=== PATIENT | male | born 1975 | race African-American/Black ===

== ENCOUNTER 2016-10-05 22:54 | Emergency (ER) | payer SELFPAY ==
[2016-10-05 23:00] VITALS: BMI 27.1
[2016-10-05] MEDS ORDERED: morphine CARPU-JECT 4 MG/1 ML DISP.SYRIN IVPUSH ONE (23:15)
[2016-10-05] MEDS ORDERED: SODIUM CHLORIDE 1,000 ML IV STA (23:15)
[2016-10-05] MEDS ORDERED: FAMOTIDINE 20 MG/50 ML IVPB 50 ML IVPB ONE ×2 (23:15→23:22)
[2016-10-05] MEDS ORDERED: PANTOPRAZOLE SODIUM 40 MG in SODIUM CHLORIDE 100 ML IVPB ONE (23:15)
[2016-10-05] MEDS ORDERED: ONDANSETRON 4 MG/2 ML VIAL IVPB ONE (23:16)
[2016-10-05] MEDS ORDERED: ONDANSETRON 4 MG/2 ML VIAL ONE (23:22)
[2016-10-05] MEDS ORDERED: morphine CARPU-JECT 4 MG/1 ML DISP.SYRIN ONE (23:22)
[2016-10-06 00:14] LABS: MCH 32.2 pg (25.7-33.7); MCHC 34.2 g/dl (32.0-35.9); MEAN CELL VOLUME 94.2 fl (80-96); WHITE BLOOD COUNT 5.8 K/mm3 (4.0-10.0)
[2016-10-06 00:15] LABS: BASOPHIL 0.1 % (0-2.0); EOSINOPHIL 0.3 % (0-4.5); MEAN PLT VOLUME 8.9 fl (7.5-11.1); NEUTROPHILS 73.7 % (42.8-82.8); PLATELET COUNT 138 K/MM3 (134-434); RDW 11.9 % (11.9-15.9)
[2016-10-06] MEDS ORDERED: PANTOPRAZOLE SODIUM 40 MG VIAL ONE (00:28)
[2016-10-06 00:57] LABS: ALBUMIN 3.5 g/dl (3.4-5.0); CALCIUM 8.5 mg/dL (8.5-10.1); COCKROFT - GAULT 90.89; CREATININE 1.4 mg/dL (0.7-1.3)
[2016-10-06 00:59] LABS: BILIRUBIN,TOTAL 0.7 mg/dL (0.2-1.0)
[2016-10-06] MEDS ORDERED: ACETAMINOPHEN 325 MG TABLET (FP) PO ONE (01:12)
[2016-10-06] MEDS ORDERED: ACETAMINOPHEN 325 MG TABLET (FP) ONE (01:14)
--- NOTE | 2016-10-06 01:29 | PDOC ---
History of Present Illness - General Chief Complaint: Pain, Acute Stated Complaint: STOMACH PAIN Time Seen by Provider: 10/05/16 23:09 History Source: Patient Exam Limitations: No Limitations - History of Present Illness Travel History: No Initial Comments: 10/06/16 01:30 41yo Male patient presents to ED c/o abd pain, nausea and diarrhea, low grade fever beginning tonight at 9pm. Patient states he ate some food yesterday which he feels may have caused his symptoms. Denies vomiting, back pain, diff breathing, CP, or any other complaints at this time. Timing/Duration: reports: getting worse Quality: reports: moderate, cramping Abdominal Pain Onset Location: reports: RLQ, generalized abdomen Pain Radiation: reports: no radiation Activities at Onset: reports: no specific activity Treatment Prior to Arrive: worse with: analgesics, antacids, cold pack, heat, laxative, enema, other Aggravating Factors: worse with: None, Defecation, Eating, Emotional upset, Exertion, Casar, Movement, Voiding, Change in position Alleviating Factors: improves with: Belching, Passing Gas. worse with: None, Shallow Breathing, Defecation, Eating, Holding Breath, Change in Position, Rest , Voiding, Vomiting Past History - Travel Traveled outside of the country in the last 30 days: No Close contact w/someone who was outside of country & ill: No - Past Medical History Allergies/Adverse Reactions: Allergies Allergy/AdvReac Type Severity Reaction Status Date / Time No Known Allergies Allergy Verified 10/05/16 22:57 Home Medications: Ambulatory Orders NK [No Known Home Medication] 10/06/16 Other medical history: denies - Immunization History Immunization Up to Date: Yes - Psycho/Social/Smoking Cessation Hx Suicidal Ideation: No Smoking History: Never smoked Information on smoking cessation initiated: No Hx Alcohol Use: No Drug/Substance Use Hx: No Substance Use Type: None Abd/GI Specific PMHX - Complaint Specific PMHX Colitis: No Diverticulitis: No Gall Bladder Disease: No GERD: No Hepatitis: No Irritable Bowel Synd (IBS): No Pancreatitis: No GI Ulcer Disease: No Review of Systems - Review of Systems Able to Perform ROS?: Yes Is the patient limited Swedish proficient: No Constitutional: No: Chills, Fever Respiratory: No: Cough, Orthopnea, Shortness of Breath, Stridor, Wheezing, Productive cough, Hemoptysis Cardiac (ROS): No: Chest Pain, Edema, Lightheadedness, Palpitations, Syncope, Chest Tightness ABD/GI: Yes: Diarrhea, Nausea, Indigestion, Abdominal cramping. No: Difficulty Swallowing, Poor Appetite, Poor Fluid Intake, Rectal Bleeding : No: Burning, Dysuria, Discharge, Flank Pain, Hematuria Musculoskeletal: No: Back Pain, Muscle Weakness, Neck Pain Integumentary: No: Bruising, Erythema, Sweating Neurological: No: Headache, Numbness, Paresthesia, Seizure, Tingling, Tremors, Weakness, Ataxia, Dizziness All Other Systems: Reviewed and Negative *Physical Exam - Vital Signs Last Vital Signs Temp Pulse Resp BP Pulse Ox 99.2 F 95 H 20 119/74 96 10/05/16 22:57 10/05/16 22:57 10/05/16 22:57 10/05/16 22:57 10/05/16 22:57 - Physical Exam General Appearance: Yes: Nourished, Appropriately Dressed, Apparent Distress, Moderate Distress. No: Mild Distress, Severe Distress Respiratory/Chest: positive: Lungs Clear, Normal Breath Sounds. negative: Respiratory Distress, Accessory Muscle Use, Labored Respiration, Rapid RR, Stridor, Wheezing Cardiovascular: positive: Regular Rhythm, Regular Rate. negative: Edema, JVD Gastrointestinal/Abdominal: positive: Tender (Generalized), Soft, Increased Bowel Sounds, Tenderness (RLQ). negative: Distended, Guarding, Rebound Musculoskeletal: positive: Normal Inspection. negative: CVA Tenderness, CVA Tenderness (R), CVA Tenderness (L) Extremity: positive: Normal Capillary Refill, Normal Inspection, Normal Range of Motion. negative: Pedal Edema, Swelling, Calf Tenderness, Erythema, Inflammation Integumentary: positive: Normal Color, Dry, Warm Neurologic: positive: consulting analyst II-XII NML intact, Fully Oriented, Alert, Normal Mood/ Affect, Normal Response, Motor Strength /5 ED Treatment Course - LABORATORY CBC & Chemistry Diagram: 10/05/16 23:20 10/05/16 23:20 - ADDITIONAL ORDERS Additional order review: Laboratory Results 10/05/16 23:20 Sodium 139 Potassium 3.8 Chloride 100 Carbon Dioxide 31 Anion Gap 8 BUN 13 Creatinine 1.4 H Creat Clearance w eGFR 56.42 Random Glucose 114 H Calcium 8.5 Total Bilirubin 0.7 AST 18 ALT 40 Alkaline Phosphatase 71 Total Protein 7.0 Albumin 3.5 Total Amylase 98 Lipase 157 10/05/16 23:20 RBC 4.24 MCV 94.2 MCHC 34.2 RDW 11.9 MPV 8.9 Neutrophils % 73.7 Lymphocytes % 16.1 Monocytes % 9.8 Eosinophils % 0.3 Basophils % 0.1 - RADIOLOGY Radiology Studies Ordered: Category Date Time Status PELVIS(OTHER) US [US] Stat Ultrasound 10/06/16 Taken - Medications Given in the ED: ED Medications Discontinued Medications Generic Name Dose Route Start Last Admin Trade Name Freq PRN Reason Stop Dose Admin Pantoprazole Sodium 40 mg/ 100 mls @ 200 mls/hr 10/05/16 23:15 10/05/16 23:55 Sodium Chloride IVPB 10/05/16 23:44 200 mls/hr ONCE ONE Administration Famotidine/Sodium Chloride 50 mls @ 100 mls/hr 10/05/16 23:15 10/05/16 23:25 Pepcid 20 Mg Premixed Ivpb - IVPB 10/05/16 23:44 100 mls/hr ONCE ONE Administration Sodium Chloride 1,000 mls @ 1,000 mls/hr 10/05/16 23:15 10/06/16 00:23 Normal Saline - IV 10/06/16 00:14 1,000 mls/hr ASDIR STA Administration Morphine Sulfate 4 mg 10/05/16 23:15 10/05/16 23:25 Morphine Injection - IVPUSH 10/05/16 23:16 4 mg ONCE ONE Administration Ondansetron HCl 4 mg 10/05/16 23:16 10/05/16 23:55 Zofran Injection IVPB 10/05/16 23:17 4 mg ONCE ONE Administration *DC/Admit/Observation/Transfer Diagnosis at time of Disposition: Gastroenteritis - Discharge Dispostion Disposition: HOME Condition at time of disposition: Improved Admit: No - Patient Instructions Printed Discharge Instructions: DI for Viral Gastroenteritis -- Adult Additional Instructions: FOLLOW UP WITH YOUR PRIMARY CARE PROVIDER NEEDED. RETURN IF SYMPTOMS WORSEN OR ANY CONCERNS FOR FURTHER EVALUATION. Print Language: IRANIAN
[2016-10-06 01:51] VITALS: BP 112/78; PULSE 88; TEMP 98.9
[2016-10-06 02:05] LABS: URINE APPEARANCE CLEAR; URINE BILIRUBIN NEGATIVE (NEGATIVE); URINE BLOOD NEGATIVE (NEGATIVE); URINE COLOR BROWN; URINE GLUCOSE (UA) NEGATIVE (NEGATIVE); URINE KETONE 1+ (NEGATIVE)
[2016-10-06 02:06] LABS: PH,URINE 7.5 (5.0-8.0); URINE LEUK ESTERASE NEGATIVE (NEGATIVE); URINE NITRITE NEGATIVE (NEGATIVE); URINE PROTEIN NEGATIVE (NEGATIVE); URINE UROBILINOGEN 0.2 E.U/dl E.U./dl (0.2-1.0)
== END 2016-10-06 01:36 | disposition home or self-care (01) ==
LOC: JER 22:54
PROC: 3E0337Z Introduction of Electrolytic and Water Balance Substance into Peripheral Vein, Percutaneous Approach (ICD-10-PCS; principal; 2016-10-05)
PROC: 3E033GC Introduction of Other Therapeutic Substance into Peripheral Vein, Percutaneous Approach (ICD-10-PCS; 2016-10-05)
PROC: 3E033GC Introduction of Other Therapeutic Substance into Peripheral Vein, Percutaneous Approach (ICD-10-PCS; 2016-10-05)
PROC: 3E033NZ Introduction of Analgesics, Hypnotics, Sedatives into Peripheral Vein, Percutaneous Approach (ICD-10-PCS; 2016-10-05)
PROC: 3E033GC Introduction of Other Therapeutic Substance into Peripheral Vein, Percutaneous Approach (ICD-10-PCS; 2016-10-05)
DX: K52.9 Noninfective gastroenteritis and colitis, unspecified (principal)
CPT/HCPCS: 36415; 76856-TC; 80053; 81003; 82150; 83690; 85025; 99281-25